=== PATIENT | female | born 1985 | race Caucasian/White ===

== ENCOUNTER 2019-08-30 14:06 | Emergency (ER) | payer OTHER ==
[2019-08-30] MEDS ORDERED: hydrOXYzine HCL 50 MG/ML VIAL IM ONE (14:37)
--- NOTE | 2019-08-30 14:42 | ED Physician Documentation ---
Abdominal Pain - HISTORIAN Historian: patient - HPI Stated Complaint: Chest pain Chief Complaint: Abdominal Pain Additonal Information: 34 year old female presents via [facility] from [facility] for c/o chest pain; actually stems from the abdomen. She states pain is sharp and radiates to the chest and then to her back. 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 She last used 4 days ago; states she takes 400 immodium daily to get high. She denies any history of other drug use or alcohol use. She c/o some nausea- no vomiting. Denies any constipation- last BM today and normal. She states that she feels very anxious and is requesting something for the anxiety. Pain started while she was lying in bed about an hour prior to arrival. Onset: minutes (pain started while lying in bed.) Duration: waxing, waning Timing: still present Context: denies: out of country travel, bad food Severity: moderate Quality: pain, sharp (intermittent/ reproducible) Associated Symptoms: nausea, back pain Exacerbated by: movements, deep breaths Relieved by: remaining still - ROS CONST: recent illness (addiction to Immodium) GI/: none CVS/RESP: none EYES/ENT: none MS/SKIN/LYMPH: none NEURO/PSYCH: anxiety - SOCIAL HX Smoking History: greater than 1 pack/day Alcohol Use: none (denies) Drug Use: none (denies any other addictions or use) - FAMILY HX Family History: none - PAST HX Past History: other (hypothyroid) Ischemic Bowel Risk Factors: none Other History: none, other (No ) Surgeries/Procedures: none Immunizations: UTD Home Medications: Ambulatory Orders Medication Instructions Recorded Unobtainable 08/30/19 Allergies/Adverse Reactions: Allergies Allergy/AdvReac Type Severity Reaction Status Date / Time No Known Allergies Allergy Verified 08/30/19 14:35 - VITAL SIGNS Vital Signs: Vital Signs Temp Pulse Resp BP Pulse Ox 98.0 F 80 19 152/92 97 08/30/19 14:06 08/30/19 15:44 08/30/19 15:44 08/30/19 15:44 08/30/19 15:44 - REVIEWED ASSESSMENTS Nursing Assessment Reviewed: Yes Vitals Reviewed: Yes ED Results Lab/Radiology - Lab Results Lab Results: Lab Results 08/30/19 08/30/19 14:20 14:20 WBC 11.70 K/ul K/ul (4.00-12.00) RBC 5.33 M/ul H M/ul (3.90-5.20) Hgb 15.4 g/dL g/dL (11.5-16.0) Hct 46.1 % % (34.5-46.5) MCV 86.0 fl fl (80.0-100.0) MCH 29.0 pg pg (28.0-34.0) MCHC 33.5 g/dL g/dL (30.0-36.0) RDW 11.1 % L % (11.3-14.3) Plt Count 278 K/mm3 K/mm3 (130-400) Neut % (Auto) 62.4 % % (39.0-79.0) Lymph % (Auto) 27.3 % % (16.0-50.0) [place] % (Auto) 8.5 % % (0.0-11.0) Eos % (Auto) 1.2 % % (0.0-6.8) Baso % (Auto) 0.6 % % (0.0-1.5) Neut # (Auto) 7.3 # k/uL # k/uL (1.4-7.7) Lymph # (Auto) 3.2 # k/uL # k/uL (0.6-4.0) [place] # (Auto) 1.0 # k/uL H # k/uL (0.0-0.9) Eos # (Auto) 0.1 # k/uL # k/uL (0.0-0.6) Baso # (Auto) 0.1 # k/uL # k/uL (0.0-0.5) Sodium 139 mmol/L mmol/L (137-145) Potassium 4.0 mmol/L mmol/L (3.5-5.1) Chloride 105 mmol/L mmol/L (98-107) Carbon Dioxide 24 mmol/L mmol/L (22-30) Anion Gap 14.0 BUN 14 mg/dL mg/dL (7-17) Creatinine 0.75 mg/dL mg/dL (0.52-1.04) Estimated Creat Clear 174 Est GFR ( Amer) > 60 (60 - ) Est GFR (Non-Af Amer) > 60 (60 - ) Glucose 114 mg/dL H mg/dL (74-106) Calcium 9.9 mg/dL mg/dL (8.4-10.2) Total Bilirubin 1.2 mg/dL mg/dL (0.2-1.3) AST 56 U/L H U/L (15-46) ALT 34 U/L U/L (0-35) Alkaline Phosphatase 121 U/L U/L (38-126) Creatine Kinase 118 U/L U/L (30-135) CK-MB (CK-2) 1.7 ng/mL ng/mL (0.0-5.6) Troponin I 0.012 ng/mL ng/mL (0.012-0.034) Total Protein 8.6 g/dL H g/dL (6.3-8.2) Albumin 4.7 g/dL g/dL (3.5-5.0) - Orders Orders: ED Orders Category Date Time Status Continuous EKG monitoring Q30M Care 08/30/19 14:08 Active Continuous Pulse Oximetry Q30M Care 08/30/19 14:[address] IV Lock 1T Care 08/30/19 14:08 Active ABDOMEN 1VIEW [RAD] Stat Exams 08/30/19 Completed CBC/PLATELET/DIFF Stat Lab 08/30/19 14:20 Completed CKMB Stat Lab 08/30/19 14:20 Completed CMP Stat Lab 08/30/19 14:20 Completed CREATINE KINASE Stat Lab 08/30/19 14:20 Completed TROPONIN I Stat Lab 08/30/19 14:20 Completed 0.9 % Sodium Chloride [Normal Saline] 1,000 ml Med 08/30/19 14:09 Discontinued IV Q1H Magnesium Citrate [Citrate of Magnesia] Med 08/30/19 15:21 Discontinued 296 ml PO NOW ONE hydrOXYzine HCL [Vistaril] Med 08/30/19 14:37 Discontinued 25 mg IM NOW PRN hydrOXYzine HCL [Vistaril] Med 08/30/19 14:37 Discontinued 50 mg IM .STK-MED ONE EKG WITH COMPARISON Stat Ther 08/30/19 14:08 Completed Abdominal Pain Physical Exam - Physical Exam General Appearance: alert, mild distress EENT: eye inspection normal, ENT inspection normal, pharynx normal, NOAH NECK: normal inspection, supple RESPIRATORY: breath sounds normal CVS: heart sounds normal, equal pulses, no murmur, no gallop, other (reproducible chest wall pain) ABDOMEN: soft, decreased BS BACK: normal inspection SKIN: warm/dry, normal color EXTREMITIES: normal range of motion NEURO: oriented X3, CN's nml as tested, motor nml, sensation nml, cognition normal Vital Signs: Vital Signs Temp Pulse Resp BP Pulse Ox 98.0 F 80 19 152/92 97 08/30/19 14:06 08/30/19 15:44 08/30/19 15:44 08/30/19 15:44 08/30/19 15:44 Discharge Clincal Impression: Constipation Referrals: Primary Doctor,No [Primary Care Provider] - 2 Days Additional Instructions: Xray shows stool throughout; lots of gas (probably the cause of sharp pain) Mag Citrate started in the ER Increase water intake Increase Fiber in Diet May use Miralax 1 capful by mouth twice a day Follow up with PCP Condition: Good Disposition: 01 HOME, SELF-CARE Decision to Admit: NO Decision Time: 15:30
[2019-08-30 14:52] LABS: BASOPHILS % 0.6 % (0.0-1.5); NEUTROPHILS # 7.3 # k/uL (1.4-7.7)
[2019-08-30] MEDS: 0.9 % SODIUM CHLORIDE 1,000 ML IV ONE (14:53)
[2019-08-30] MEDS: hydrOXYzine HCL 50 MG/ML VIAL IM PRN (14:54)
[2019-08-30 15:08] LABS: eGFR (Non-African) > 60
--- NOTE | 2019-08-30 15:19 | Diagnostic Imaging Report ---
PATIENT MR#: [id number] PATIENT PATIENT NAME: BRIAN WHALEN DATE OF : 1985 REFERRING PHYSICIAN: Ave Rivera EXAM DATE: 08/30/2019 ACCESSION NUMBER: [id number] EXAM DESCRIPTION: ABDOMEN 1VIEW KUB Clinical history: Abdominal pain Technique ap supine radiograph of the abdomen Findings: The bowel gas pattern shows retained fecal material in the colon. No renal calcifications a re seen. The bones are within normal limits. No abdominal masses identified. No pathologic calcifications are identified Impression: Retained fecal material through the colon Read by: Dr. Og Tsai Transcribed by: Transcribed Date: Electronically signed by: Dr. Og Tsai Date signed: 08/30/2019 3:18:54 PM
[2019-08-30] MEDS: MAGNESIUM CITRATE 296 ML BOTTLE PO ONE (15:30)
[2019-08-30 15:49] VITALS: BP 152/92
== END 2019-08-30 15:44 | disposition home or self-care (01) ==
LOC: ED 14:06
DX: K59.00 Constipation, unspecified (principal)
CPT/HCPCS: 36415; 74018; 80053; 82550; 82553; 84484; 85025; 93005; 96360; 96372; 99284; J3410; J7030; S1016